=== PATIENT | female | born 1970 | race Caucasian/White ===

== ENCOUNTER 2018-04-18 16:42 | Emergency (ER) | payer MEDICAID ==
[~2018-04-18] VITALS: Ht 152.4 cm; Wt 83.0 kg
[~2018-04-18 16:42] MED LIST: AZIT500T2 PO; DOXY100T2 PO; GUAI100L97 PO; MEDR10TA PO; NO HOME MEDS
[2018-04-18] MEDS ORDERED: LIDOcaine 1% 30ml preserv. free vial IJ ONE (17:05)
[2018-04-18] MEDS ORDERED: CEPH500C5 PO (17:44)
[2018-04-18] MEDS ORDERED: HYDR-4353 PO (17:46)
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
[2018-04-18 20:11] VITALS: BP 129/76
== END 2018-04-18 20:15 | disposition home or self-care (01) ==
LOC: ER 16:42
DX: S62.602B Fracture of unspecified phalanx of right middle finger, initial encounter for open fracture (principal); I10 Essential (primary) hypertension; Z88.0 Allergy status to penicillin; Z79.899 Other long term (current) drug therapy; V89.9XXA Person injured in unspecified vehicle accident, initial encounter; Y93.89 Activity, other specified; Y92.89 Other specified places as the place of occurrence of the external cause; Y99.9 Unspecified external cause status
CPT/HCPCS: 29130; 73090; 73110; 73130; 99283; J3490; 12002

== ENCOUNTER 2021-10-04 10:56 | Emergency (ER) | payer MEDICAID ==
[~2021-10-04] VITALS: Ht 152.4 cm; Wt 79.0 kg
[2021-10-04 11:11] VITALS: BP 124/84
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
[2021-10-04] MEDS ORDERED: HYDROcodone/acetaminophen 5mg/325mg tablet PO ONE (13:00)
== END 2021-10-04 14:56 | disposition home or self-care (01) ==
LOC: ER 10:56
DX: M54.50 Low back pain, unspecified (principal); I10 Essential (primary) hypertension; F15.90 Other stimulant use, unspecified, uncomplicated; Z59.00 Homelessness unspecified; Z88.0 Allergy status to penicillin; Z79.899 Other long term (current) drug therapy; Y04.8XXA Assault by other bodily force, initial encounter; Y93.89 Activity, other specified; Y92.89 Other specified places as the place of occurrence of the external cause; Y99.8 Other external cause status
CPT/HCPCS: 72131; 99284

== ENCOUNTER 2021-11-11 20:55 | Emergency (ER) | payer MEDICAID ==
[~2021-11-11] VITALS: Ht 152.4 cm; Wt 77.3 kg
[2021-11-11 21:08] VITALS: BP 144/94
--- NOTE | 2021-11-11 22:45 | NUR ---
pt seen leaving the er by staff. er provider informed
== END 2021-11-11 23:04 | disposition home or self-care (01) ==
LOC: ER 20:56
DX: M54.9 Dorsalgia, unspecified (principal); I10 Essential (primary) hypertension; F15.10 Other stimulant abuse, uncomplicated; Z88.0 Allergy status to penicillin; Z79.899 Other long term (current) drug therapy; Z59.00 Homelessness unspecified
CPT/HCPCS: 99281

== ENCOUNTER 2021-11-26 22:22 | Emergency (ER) | payer MEDICAID ==
[~2021-11-26] VITALS: Ht 152.4 cm; Wt 68.2 kg
[2021-11-26 22:31] VITALS: BP 160/112
== END 2021-11-26 22:41 | disposition left against medical advice (07) ==
LOC: ER 22:23
DX: M25.522 Pain in left elbow (principal); Z53.21 Procedure and treatment not carried out due to patient leaving prior to being seen by health care provider; V98.8XXA Other specified transport accidents, initial encounter; Y93.89 Activity, other specified; Y92.89 Other specified places as the place of occurrence of the external cause; Y99.8 Other external cause status

== ENCOUNTER 2022-01-04 22:56 | Inpatient (IN) | payer MEDICAID ==
[~2022-01-04] VITALS: Ht 154.9 cm; Wt 80.0 kg
[2022-01-05] MEDS ORDERED: normal saline 1000ML IV soln IVB ONE (02:05)
[2022-01-05 02:32] LABS: BASOPHILS % (AUTO) 0.2 % (0-1); EOSINOPHILS # (AUTO) 0.2 X10'3 (0-0.9); EOSINOPHILS % (AUTO) 2.6 % (0-6); HEMATOCRIT 34.2 % (35.0-45.0); HEMOGLOBIN 11.8 g/dl (12.0-16.0); LYMPHOCYTES # (AUTO) 2.4 X10'3 (1.1-4.8); MEAN CORPUSCULAR HEMOGLOBIN 28.1 PG (27.0-31.0); MEAN CORPUSCULAR HGB CONC 34.6 g/dL (33.0-36.5); MEAN CORPUSCULAR VOLUME 81.3 FL (78-98); MEAN PLATELET VOLUME 8.4 FL (7.4-10.4); MONOCYTES # (AUTO) 0.9 X10'3 (0-0.9); MONOCYTES % (AUTO) 9.5 % (2-12); NEUTROPHILS % (AUTO) 62.7 % (42-75); PLATELET COUNT 200 X10'3 (140-440); RED CELL DISTRIBUTION WIDTH 14.1 % (11.5-14.5); WHITE BLOOD COUNT 9.6 X10'3 (4.5-11.0)
[2022-01-05] MEDS ORDERED: iohexol 350MG/ML 100ml bottle IV ONE (02:35)
[2022-01-05 02:46] LABS: ALBUMIN 2.6 G/DL (3.4-5.0); ANION GAP 8 (8-16); BILIRUBIN,TOTAL 0.4 MG/DL (0.1-1.0); BLOOD UREA NITROGEN 6 MG/DL (7-18); BUN/CREATININE RATIO 10.2 (6.6-38.0); CALCIUM 7.9 MG/DL (8.5-10.1); CHLORIDE 105 MMOL/L (99-107); CREATININE 0.59 MG/DL (0.40-0.90); GLUCOSE 105 MG/DL (70-104); MAGNESIUM 1.9 MG/DL (1.5-2.4); SODIUM 143 MMOL/L (135-145); TOTAL CARBON DIOXIDE 30.2 MMOL/L (24-32); TOTAL PROTEIN 6.2 G/DL (6.4-8.2); eGFR > 90 ML/MIN
[2022-01-05 02:47] LABS: ALANINE AMINOTRANSFERASE 29 U/L (12-78); ALBUMIN/GLOBULIN RATIO 0.7 (1.1-1.5); ALKALINE PHOSPHATASE 35 IU/L (46-116); ASPARTATE AMINO TRANSFERASE 23 U/L (10-37)
[2022-01-05 02:54] LABS: ETHANOL < 0.010 GM/DL (0.0-0.010)
[2022-01-05 02:55] LABS: POTASSIUM 2.6 MMOL/L (3.5-5.1)
[2022-01-05] MEDS ORDERED: potassium Cl 20 mEq SR tablet PO ONE ×2 (02:55→06:35)
[2022-01-05] MEDS ORDERED: potassium CL 10mEq/100ml bag 100 ML IV ONE (02:55)
[2022-01-05] MEDS ORDERED: magnesium oxide 400mg tablet PO ONE (02:55)
[2022-01-05] MEDS ORDERED: magnesium 2GM in 50ml NS 50 ML IV ONE (02:55)
[2022-01-05 04:18] LABS: URINE AMPHETAMINE SCREEN POSITIVE (Neg); URINE BARBITUATE SCREEN NEGATIVE (Neg); URINE BENZODIAZEPINES SCREEN NEGATIVE (Neg); URINE CANNABINOID SCREEN NEGATIVE (Neg); URINE COCAINE SCREEN NEGATIVE (Neg); URINE METHADONE SCREEN NEGATIVE (Neg); URINE OPIATE SCREEN NEGATIVE (Neg); URINE PHENCYCLIDINE SCREEN NEGATIVE (Neg)
[2022-01-05] MEDS ORDERED: clindamycin 300mg/D5W 50mL 50 ML IV SCH ×2 (04:40→08:00)
[2022-01-05 05:10] VITALS: BP 146/95
[2022-01-05] MEDS ORDERED: mag hydrox/Alum hydrox/simeth 30ml oral suspension PO PRN (05:50)
[2022-01-05] MEDS ORDERED: bisacodyl 10mg suppository rectal RC PRN (05:50)
[2022-01-05] MEDS ORDERED: ondansetron 4mg rapidly disintigrating tab PO PRN (05:50)
[2022-01-05] MEDS ORDERED: magnesium hydroxide 30ml (MOM) UD suspension PO PRN (05:50)
[2022-01-05] MEDS ORDERED: ondansetron/PF 4mg/2ml inj IV PRN (05:50)
[2022-01-05] MEDS ORDERED: acetaminophen 650mg rectal suppository RC PRN (05:50)
[2022-01-05] MEDS ORDERED: potassium Cl 40MEQ/1/2NS 520ml 520 ML IV PRN ×2 (05:50)
[2022-01-05] MEDS ORDERED: morphine 2 MG/ML inj. syringe IV PRN ×2 (05:50)
[2022-01-05] MEDS ORDERED: diphenhydrAMINE 50 mg/ml inj IV PRN (05:50)
[2022-01-05] MEDS ORDERED: potassium Cl 20 mEq SR tablet PO PRN ×2 (05:50)
[2022-01-05] MEDS ORDERED: HYDROcodone/acetaminophen 10/325mg tab PO PRN (05:50)
[2022-01-05] MEDS ORDERED: HYDROcodone/acetaminophen 5mg/325mg tablet PO PRN (05:50)
[2022-01-05] MEDS ORDERED: potassium Cl 20mEq in NS 1,000 ML IV SCH (05:50)
[2022-01-05] MEDS ORDERED: HYDROmorphone inj. 0.5 MG/0.5 ML DISP.SYRIN IV PRN (05:50)
[2022-01-05] MEDS ORDERED: acetaminophen 325mg tablet PO PRN ×2 (05:50)
[2022-01-05] MEDS ORDERED: diphenhydrAMINE 25mg capsule PO PRN (05:50)
[2022-01-05] MEDS ORDERED: CLIN-97 PO (06:21)
[2022-01-05] MEDS ORDERED: pantoprazole 40mg Tablet.DR PO SCH (07:30)
[2022-01-05] MEDS ORDERED: docusate sod 100mg capsule PO SCH (08:00)
[2022-01-05] MEDS ORDERED: K and/or MAG REPLACEMENT MC SCH (08:00)
[2022-01-05] MEDS ORDERED: temazepam 15mg capsule PO PRN (21:00)
== END 2022-01-05 07:16 | disposition left against medical advice (07) | DRG 254 ==
LOC: ER 22:57 → ED HOLD 01-05 05:53
PROVIDERS: ADMIT Family Medicine; ATTEND Internal Medicine
DX: K61.1 Rectal abscess (principal); B19.20 Unspecified viral hepatitis C without hepatic coma; E87.6 Hypokalemia; F15.129 Other stimulant abuse with intoxication, unspecified; I10 Essential (primary) hypertension; J45.909 Unspecified asthma, uncomplicated; F32.A Depression, unspecified; K58.9 Irritable bowel syndrome, unspecified; K62.89 Other specified diseases of anus and rectum; Z53.29 Procedure and treatment not carried out because of patient's decision for other reasons; Z59.00 Homelessness unspecified; Z86.14 Personal history of Methicillin resistant Staphylococcus aureus infection; Z88.0 Allergy status to penicillin; Z91.018 Allergy to other foods; Z79.899 Other long term (current) drug therapy; Z71.51 Drug abuse counseling and surveillance of drug abuser
CPT/HCPCS: 36415; 72193; 80053; 80305; 80320; 83605; 83735; 84145; 85025; 99285; G0378; J3475; J3480; J3490; J7030; Q9967

== ENCOUNTER 2022-01-07 01:27 | Emergency (ER) | payer MEDICAID ==
[~2022-01-07] VITALS: Ht 154.9 cm; Wt 86.4 kg
[~2022-01-07 01:27] MED LIST changes: -AZIT500T2 PO; +CLIN-97 PO; -DOXY100T2 PO; -GUAI100L97 PO; -MEDR10TA PO
[2022-01-07 01:31] VITALS: BP 136/89
[2022-01-07] MEDS ORDERED: HYDROcodone/acetaminophen 10/325mg tab PO ONE (04:10)
[2022-01-07] MEDS ORDERED: LIDOCAINE 1%/EPI 1:100,000 inj. 10 ML multi-dose vial IJ ONE (04:15)
== END 2022-01-07 04:48 | disposition left against medical advice (07) ==
LOC: ER 01:27
DX: K61.1 Rectal abscess (principal); I10 Essential (primary) hypertension; F15.10 Other stimulant abuse, uncomplicated; Z86.14 Personal history of Methicillin resistant Staphylococcus aureus infection; Z59.00 Homelessness unspecified; Z88.0 Allergy status to penicillin; Z79.899 Other long term (current) drug therapy; Z79.1 Long term (current) use of non-steroidal anti-inflammatories (NSAID)
CPT/HCPCS: 99283; A6266; A6449

== ENCOUNTER 2022-06-04 18:41 | Emergency (ER) | payer MEDICAID ==
[~2022-06-04] VITALS: Ht 154.9 cm; Wt 77.3 kg
[2022-06-04 19:13] VITALS: BP 152/98
[2022-06-04] MEDS ORDERED: ketorolac trometh. 30mg/ml inj. IM ONE (19:40)
[2022-06-04] MEDS ORDERED: orphenadrine citrate 60mg/2ml inj. IM ONE (19:40)
[2022-06-04] MEDS ORDERED: CYCL-1 PO (19:53)
[2022-06-04] MEDS ORDERED: IBUP-1984 PO (19:53)
== END 2022-06-04 20:17 | disposition home or self-care (01) ==
LOC: ER 18:42
DX: M54.50 Low back pain, unspecified (principal); G89.29 Other chronic pain; I10 Essential (primary) hypertension; F15.90 Other stimulant use, unspecified, uncomplicated; Z59.00 Homelessness unspecified; Z86.14 Personal history of Methicillin resistant Staphylococcus aureus infection; Z88.0 Allergy status to penicillin; Z79.899 Other long term (current) drug therapy
CPT/HCPCS: 96372; 99284; J1885; J2360

== ENCOUNTER 2022-06-14 15:08 | Emergency (ER) | payer MEDICAID ==
[~2022-06-14] VITALS: Ht 152.4 cm; Wt 77.2 kg
[~2022-06-14 15:08] MED LIST changes: +CYCL-1 PO
[2022-06-14 15:24] VITALS: BP 161/98
== END 2022-06-15 02:33 | disposition left against medical advice (07) ==
LOC: ER 15:08
DX: M25.552 Pain in left hip (principal); Z53.21 Procedure and treatment not carried out due to patient leaving prior to being seen by health care provider
CPT/HCPCS: 73502

== ENCOUNTER 2025-02-13 09:16 | Emergency (ER) | payer MEDICAID ==
[~2025-02-13] VITALS: Ht 154.9 cm; Wt 61.9 kg
[~2025-02-13 09:16] MED LIST changes: +CLIN-224 PO; -CLIN-97 PO
[2025-02-13 09:44] VITALS: BP 137/105; PULSE 83; RESP 18; TEMP 97.9; O2SAT 98
--- NOTE | 2025-02-13 11:40 | Physician Documentation ---
History of Present Illness ~ Chief Complaint: Finger pain Stated Complaint: FINGER LAC Time Seen by MD: 10:15 Primary Medical Doctor: ADELSO/ LINNEA CORREA Patient is seen today with complaints of a finger infection of her index finger. Patient states he cut the tip of it a few days ago and now it is full of in become painful in his draining some purulent material. Patient states she is having pain of the right index finger. She denies any fevers or chills in his no other concern or complaint at this time. Tetanus within 5 years: Yes Medication Reconciliation Allergies: Coded Allergies: Penicillins (Verified Allergy, Unknown, 06/04/22) Uncoded Allergies: MUSHROOMS (Allergy, Severe, 11/14/17) Scheduled Clindamycin HCL* (Clindamycin HCL*), 1 CAP PO Q8H Cyclobenzaprine* (Cyclobenzaprine*), 1 TAB PO Q8H Sulfamethoxazole/Trimethoprim (Bactrim Ds Tablet), 1 TAB PO Q12H Miscellaneous Medications Home Med List (No Home Medications), (Reported) Past Medical History Past Medical History: Hypertension, MRSA Abscess Past Surgical History: noncontributory Drug Use: methamphetamine Lives with: Spouse Lives In: Homeless Review of Systems Constitutional: Denies: chills, fever, weakness Eyes: Denies: pain, blurred vision ENT: Denies: ear pain, nose pain, throat pain, mouth pain Respiratory: Denies: cough, shortness of breath Cardiovascular: Denies: chest pain, palpitations Gastrointestinal: Denies: abdominal pain, nausea, vomiting Genitourinary: Denies: burning, dysuria Female Genitalia: Denies: vaginal discharge, pelvic pain Neurological: Denies: headache, dizziness Musculoskeletal: Denies: pain, swelling Integumentary: Denies: rash, lesions Allergic/Immunologic: Denies: hives, itching Hematologic/Lymphatic: Denies: no symptoms reported Psychiatric: Denies: depression, anxiety Physical Exam Vital Signs: Temperature: 97.9, Source: Temporal, Heart Rate: 83, Respiratory Rate: 18, BP: 137/105, Pulse Oximetry: 98, Weight: 61.900 Oxygen Flow Rate: 0 Procedures I&D Procedure : Procedure Note Procedure note: After area was prepped with Betadine, 11 blade was used to Abelardo the superficial abscess without any local anesthesia needed at this time. Some purulent drainage was expressed from the left index finger and silver dollar size piece of superficial did skin was removed by myself today. Finger was bandaged with nonstick dressing. Progress Results/Orders Results/Orders Completed Orders - MARIAN MIMS Sulfamethox/Trimetho. Ds Tab (Decra Ds (02/13/25 11:38) Medications Received in ER Medications (Trade) Dose Ordered Sig/Soco Route PRN Reason Start Time Stop Time Status Last Admin Dose Admin ( DS tab) 1 tab ONCE STAT PO 02/13/25 11:38 02/13/25 11:43 DC 02/13/25 11:50 1 TAB Vital Signs 02/13/25 09:44 Temp 97.9 Pulse 83 Resp 18 B/P (MAP) 137/105 Pulse Ox 98 O2 Flow Rate 0 Medical Decision Making Additional information obtaine: N/A Findings Patient is seen today with complaints of a finger infection of her index finger. Patient states he cut the tip of it a few days ago and now it is full of in become painful in his draining some purulent material. Patient states she is having pain of the right index finger. She denies any fevers or chills in his no other concern or complaint at this time. Patient did have incision and drainage of the right index finger done today and was started on antibiotic Bactrim DS and prescription of Bactrim DS sent to patient's pharmacy. Patient will follow up with primary care in 2-3 days for re-evaluation and dressing change or return to ED for dressing changes and if no better or with any worsening, concerning or changing symptoms. General Diff Dx:Considerations: Include: Abrasion; Unlikely: Contusion, Fracture, Hematoma, Laceration, Malunion, Neurovascular injury, Open fracture, Sprain, Ulcer, Other Shoulder Diff Dx:Consideration: Unlikely: AC separation, Adhesive capsulitis, Arthritis, Bicipital tendonitis, Calcific tendonitis, Cervical disc disease, Contusion, Dislocation, Fracture-humerus, Fracture-scapula, Fracture-clavicle, GB disease, Hematoma, Impingement syndrome, Myocardial infarction, Neurovascular injury, Open fracture-humerus, Open fracture-scapula, Open fracture-clavicle, Rotator cuff injury, SC dislocatoin, Sprain, Subacromial bursitis, Other Elbow Diff Dx:Considerations: Unlikely: Abrasion, Arthritis, Contustion, DJD, Fracture-humerus, Fracture-radial head, Fracture-radius, Fracture-ulna, Gout, Hematoma, Laceration, Neurovascular injury, Olecranon bursitis, Open fracture, Osteomyelitis, Radial head subluxation, Rheumatoid arthritis, Septic, Sprain, Ulcer, Other Wrist Diff Dx:Considerations: Unlikely: Abrasion, Arthritis, DJD, Gout, Rheumatoid, Septic, Carpal tunnel snydrome, Contusion, Dislocation, Fracture- carpal, Fracture-radius, Fracture-ulna, Ganglion, Laceration, Neurovascular injury, Open fracture, Strain, Other Hand Diff Dx:Considerations: Unlikely: Abrasion, Arthritis, Contusion, DJD, Felon, Fracture-carpal, Fracture-metacarpal, Fracture-phalynx, Fracture-radius, Fracture-ulna, Gout, Hematoma, Herpetic jacquie, Laceration, Neurovascular injury, Open fracture, Paronychia, Rheumatoid arthritis, Septic, Sprain, Subungual hematoma, Tenosynovitis, Volar plate injury, Cellulitis, Malunion, Other Finger Diff Dx:Considerations: Include: Abrasion, Cellulitis, Contusion, Laceration Departure Disposition: 01 HOME / SELF CARE / HOMELESS Impression: Primary Impression: Abscess of finger of right hand Condition: Stable Discharge Instructions: Abscess/Boil Additional Instructions: Patient did have incision and drainage of the right index finger done today and was started on antibiotic Bactrim DS and prescription of Bactrim DS sent to patient's pharmacy. Patient will follow up with primary care in 2-3 days for re-evaluation and dressing change or return to ED for dressing changes and if no better or with any worsening, concerning or changing symptoms. Referrals: NO PRIMARY CARE PROVIDER (PCP) Prescriptions Sulfamethoxazole/Trimethoprim (Bactrim Ds Tablet) 800 Mg-160 Mg Tablet 1 TAB PO Q12H for 10 Days, #20 TAB Prov: MARIAN MIMS 02/13/25 Signature Scribe Signature: No scribe Attestation: No scribe MARIAN MIMS Feb 13, 2025 11:40
[2025-02-13] MEDS ORDERED: SULF1TAB49 PO (11:41)
[2025-02-13] MEDS: sulfamethoxazole/trimethoprim DS (800/160mg) tablet PO STA (11:50)
== END 2025-02-13 13:00 | disposition home or self-care (01) ==
LOC: ER 09:17
DX: L02.511 Cutaneous abscess of right hand (principal); I10 Essential (primary) hypertension; F15.90 Other stimulant use, unspecified, uncomplicated; Z88.0 Allergy status to penicillin
CPT/HCPCS: 26010; 99283; A6222; 10060; A6258; A6449